=== PATIENT | male | born 1960 | race Caucasian/White ===

== ENCOUNTER 2016-11-21 16:38 | Inpatient (IN) | payer OTHER ==
[~2016-11-21] VITALS: Ht 162.6 cm; Wt 71.7 kg
--- NOTE | 2016-11-21 16:38 | NUR ---
CHEST PAIN PRESSURE LIKE PAIN STARTED AROUND 1330 TODAY. NAD NOTED. PT AAO X4, AMB WITH STEADY GAIT. RR EVEN AND UNLABORED. VSS. PLACED IN GOWN AND MONITOR. CONTINUE TO MONITOR.
--- NOTE | 2016-11-21 16:45 | NUR ---
EKG AT BEDSIDE
[2016-11-21] MEDS ORDERED: NITROGLYCERIN 0.4 MG/TAB BOTTLE SL ONE (17:30)
[2016-11-21 17:32] LABS: BASOPHILS % (AUTO) 0.3 % (0.0-2.0); EOSINOPHILS # (AUTO) 0.1 /CMM (0.0-0.7); EOSINOPHILS % (AUTO) 1.4 % (0.0-6.0); HEMATOCRIT 39 % (39-51); HEMOGLOBIN 12.8 g/dL (13.5-17.5); LYMPHOCYTES # (AUTO) 1.6 /CMM (0.8-4.8); LYMPHOCYTES % (AUTO) 27.3 % (20.0-44.0); MEAN CORPUSCULAR HEMOGLOBIN 26 PG (26.0-33.0); MEAN CORPUSCULAR HGB CONC 33 g/dl (31.0-36.0); MEAN CORPUSCULAR VOLUME 78 fL (80-96); MONOCYTES # (AUTO) 0.5 /CMM (0.1-1.30); NEUTROPHILS # (AUTO) 3.8 /CMM (1.8-8.9); PLATELET COUNT (AUTO) 190 /CMM (150-450); RDW COEFFICIENT OF VARIATION 14.1 (11.5-15.0)
[2016-11-21 17:37] LABS: CALCIUM, SERUM 9.3 mg/dL (8.5-10.1); CARBON DIOXIDE 28 mmol/L (21-32); CHLORIDE 103 mmol/L (98-107); CREATININE 0.9 mg/dL (0.6-1.3); GLUCOSE 101 mg/dL (74-106); POTASSIUM 3.6 mmol/L (3.5-5.1); SODIUM SERUM 134 mmol/L (136-145); UREA NITROGEN, BLOOD 17 mg/dL (7-18)
[2016-11-21 17:38] LABS: PROTHROMBIN TIME 10.4 SECS (9.5-12.7)
[2016-11-21 17:41] LABS: TROPONIN I < 0.017 ng/mL (0.00-0.056)
[2016-11-21] MEDS ORDERED: IV NS 0.9% 250 ML IV ONE (17:46)
[2016-11-21] MEDS ORDERED: IOHEXOL-300 100 ML VIAL IV ONE (17:46)
[2016-11-21] MEDS ORDERED: NITROGLYCERIN 0.4 MG/TAB BOTTLE ONE (17:47)
[2016-11-21 17:48] LABS: B-TYPE NATRIURETIC PEPTIDE 48 PG/ML (0-125)
--- NOTE | 2016-11-21 18:34 | NUR ---
PAGED DIRECTOR EHS FOR DR LIVINGSTON
[2016-11-21] MEDS ORDERED: ASPIRIN 325 MG TABLET PO ONE (19:30)
[2016-11-21] MEDS ORDERED: ASPIRIN 325 MG TABLET ONE (19:59)
[2016-11-21 20:00] VITALS: BP 125/79
--- NOTE | 2016-11-21 20:04 | NUR ---
CALLING REPORT TO TELE NURSE.
--- NOTE | 2016-11-21 20:10 | NUR ---
REPORT GIVEN TO KUN JOHNSTON LAURA
[2016-11-21 21:00] VITALS: BP 125/79
--- NOTE | 2016-11-21 21:00 | NUR ---
RN NOTES RECEIVED PT. FROM ER WITH DX. OF CHEST PAIN, A/OX4, SR WITH BBB ON TELE MONITOR HR-78, PAIN ON THE LEFT ARM , NO SOB, ADMISSION INSTRUCTION WAS GIVEN, CALL LIGHT WITHIN REACH, SIDERAILS UPX2 CONTINUE TO MONITOR
[2016-11-21] MEDS ORDERED: ONDANSETRON HCL/PF 4 MG/2 ML VIAL IV PRN (21:30)
[2016-11-21] MEDS ORDERED: MORPHINE SULFATE INJ 2 MG/ML DISP.SYRIN IV PRN (21:30)
[2016-11-21] MEDS ORDERED: ACETAMINOPHEN LIQUID 160 MG/5 ML BOTTLE PO PRN (21:30)
[2016-11-21] MEDS ORDERED: ENOXAPARIN SODIUM 40 MG/0.4 ML DISP.SYRIN SQ SCH (21:30)
[2016-11-21] MEDS ORDERED: ENOXAPARIN SODIUM 40 MG/0.4 ML DISP.SYRIN SQ ONE (21:45)
[2016-11-21] MEDS ORDERED: ACETAMINOPHEN 325 MG TABLET ONE (21:45)
[2016-11-21] MEDS ORDERED: IV NS 0.9% 1,000 ML ONE (21:50)
[2016-11-21] MEDS ORDERED: IV SET PRIMARY PUMP SET 1 EA INFUS.SET MC ONE (21:50)
[2016-11-21] MEDS ORDERED: IV NS 0.9% 1,000 ML BAG IV SCH (22:00)
[2016-11-21] MEDS: ACETAMINOPHEN 325 MG TABLET PO PRN (22:01)
[2016-11-21] MEDS ORDERED: BUSP10TA3 PO (22:25)
[2016-11-21] MEDS ORDERED: TRAZ-147 PO (22:25)
--- NOTE | 2016-11-21 22:50 | NUR ---
RN NOTES SPOKE TO DR. LIVINGSTON AND GOT AN ORDER OF BUSPAR 10MG PO AND TRAZODONE 100MG PO , ORDER NOTED AND CARRIED OUT
--- NOTE | 2016-11-21 23:00 | NUR ---
RN NOTES' COMPLAINED OF HEADACHE-TYLENOL 650MG PO GIVEN ORDERED
[2016-11-21] MEDS ORDERED: TRAZODONE 50 MG TABLET ONE (23:07)
[2016-11-21] MEDS ORDERED: busPIRone 5 MG TABLET ONE (23:07)
[2016-11-21] MEDS: TRAZODONE 50 MG TABLET PO SCH (23:12)
[2016-11-21] MEDS: busPIRone 5 MG TABLET PO SCH (23:12)
[2016-11-21] MEDS ORDERED: NITROGLYCERIN PACKET 1 GM PACKET ONE (23:14)
[2016-11-21] MEDS: NITROGLYCERIN 30 GM TUBE TP SCH (23:23)
[2016-11-22] VITALS: BP 117/74
[2016-11-22 04:00] VITALS: BP 94/55
[2016-11-22] MEDS: NITROGLYCERIN 30 GM TUBE TP SCH (06:00)
--- NOTE | 2016-11-22 06:23 | NUR ---
RN NOTES AWAKE, DENIES PAIN, NO SOB, MORNING CARE RENDERED, PT. NEEDS ATTENDED. ENDORSED TO DAYSHIFT NURSE FOR CONTINUITY OF CARE
[2016-11-22 06:45] LABS: BASOPHILS % (AUTO) 0.5 % (0.0-2.0); EOSINOPHILS # (AUTO) 0.1 /CMM (0.0-0.7); EOSINOPHILS % (AUTO) 2.2 % (0.0-6.0); HEMATOCRIT 35 % (39-51); LYMPHOCYTES # (AUTO) 1.3 /CMM (0.8-4.8); MEAN CORPUSCULAR HEMOGLOBIN 27 PG (26.0-33.0); MEAN CORPUSCULAR HGB CONC 34 g/dl (31.0-36.0); MEAN CORPUSCULAR VOLUME 80 fL (80-96); MONOCYTES # (AUTO) 0.5 /CMM (0.1-1.30); MONOCYTES % (AUTO) 10.5 % (2.0-12.0); NEUTROPHILS # (AUTO) 2.4 /CMM (1.8-8.9); NEUTROPHILS % (AUTO) 55.8 % (43.0-81.0); PLATELET COUNT (AUTO) 174 /CMM (150-450); RDW COEFFICIENT OF VARIATION 15.1 (11.5-15.0); RED BLOOD CELL COUNT(AUTO) 4.42 MIL/uL (4.5-6.0); WHITE BLOOD COUNT (AUTO) 4.3 K/uL (4.3-11.0)
[2016-11-22 06:54] LABS: TROPONIN I < 0.017 ng/mL (0.00-0.056)
[2016-11-22 06:55] LABS: CALCIUM, SERUM 8.7 mg/dL (8.5-10.1); CARBON DIOXIDE 28 mmol/L (21-32); CHLORIDE 108 mmol/L (98-107); CREATININE 0.9 mg/dL (0.6-1.3); GLUCOSE 93 mg/dL (74-106); POTASSIUM 4.3 mmol/L (3.5-5.1); SODIUM SERUM 142 mmol/L (136-145); UREA NITROGEN, BLOOD 14 mg/dL (7-18)
[2016-11-22 07:04] VITALS: BP 98/56
[2016-11-22] MEDS ORDERED: ENOXAPARIN SODIUM 40 MG/0.4 ML DISP.SYRIN SQ SCH (07:05)
[2016-11-22 07:27] LABS: CHOLESTEROL 122 mg/dL (<200); HDL CHOLESTEROL 33 mg/dL (40-60); LDL 81 mg/dL (0-99); TRIGLYCERIDES 58 mg/dL (30-150)
[2016-11-22] MEDS ORDERED: LAMO200T39 PO (07:54)
[2016-11-22] MEDS ORDERED: FLUT16SP16 NS (07:54)
[2016-11-22] MEDS ORDERED: CETI-102 PO (07:54)
[2016-11-22] MEDS: ASPIRIN EC 325 MG TABLET.DR PO SCH (08:06)
[2016-11-22] MEDS: PANTOPRAZOLE 40 MG TABLET.DR PO SCH (08:06)
[2016-11-22] MEDS: busPIRone 5 MG TABLET PO SCH ×2 (08:07→16:05)
[2016-11-22] MEDS: CARVEDILOL 6.25 MG TABLET PO SCH ×2 (08:07→21:55)
[2016-11-22] MEDS: ATORVASTATIN 10 MG TABLET PO SCH (08:07)
[2016-11-22 08:29] LABS: MAGNESIUM 1.9 mg/dL (1.8-2.4); PHOSPHORUS 4.4 mg/dL (2.5-4.9)
[2016-11-22 08:34] LABS: THYROID STIMULATING HORMONE 4.736 uIU/mL (0.358-3.74)
--- NOTE | 2016-11-22 09:35 | NUR ---
CALL PERSON NOTES CALLED DR LIVINGSTON'S OFFICE TO SEE IF HE COULD CONTINUE THE PATIENT'S MEDS. WAITING FOR A RETURN CALL.
--- NOTE | 2016-11-22 09:41 | NUR ---
CAD DETAILER NOTE RECEIVED CALL FROM DR LIVINGSTON WHO STATES TO CONTINUE ALL HOME MEDS. FAXED A MED RECON PAGE TO PHARMACY WITH ORDERS.
[2016-11-22] MEDS: IV NS 0.9% 1,000 ML IV PRN (10:35)
[2016-11-22] MEDS ORDERED: busPIRone 5 MG TABLET PO SCH (11:00)
[2016-11-22] MEDS: FLUTICASONE PROPIONATE 16 GM BOTTLE NS SCH (11:00)
[2016-11-22] MEDS: cetrizine 10 MG TABLET PO SCH (11:03)
[2016-11-22] MEDS: LamoTRIgine 100 MG TABLET PO SCH (11:03)
[2016-11-22] MEDS ORDERED: IV NS 0.9% 250 ML IV ONE (14:43)
[2016-11-22] MEDS ORDERED: IOHEXOL-300 100 ML VIAL IV ONE (14:43)
[2016-11-22] MEDS ORDERED: CT SWABBABLE VALVE TRANS SET 1 EA INFUS.SET MC ONE (14:43)
[2016-11-22 18:49] VITALS: BP 126/78
--- NOTE | 2016-11-22 19:24 | NUR ---
NECKTIE OPERATOR POCKETS AND PIECES CLOSING NOTES NO SIGNIFICANT CHANGES IN PATIENT CONDITION THROUGHOUT THE SHIFT. NO SOB OR DISTRESS NOTED. PATIENT DENIES PAIN. HEART RATE SR IN THE 80S. WILL ENDORSE FOR LAURA.
[2016-11-22 20:00] VITALS: BP 118/75
--- NOTE | 2016-11-22 20:00 | NUR ---
TELE/RN RECEIVE PATIENT AWAKE, ALERT, ORIENTED, COMFORTABLE, NO C/O PAIN, NO DISTRESS NOTED. EDUCATED ABOUT STRESS TEST PROCEDURE IN A.M., VERBALIZED UNDERSTANDING. WILL MONITOR.
[2016-11-22] MEDS: TRAZODONE 50 MG TABLET PO SCH (21:55)
[2016-11-22] MEDS: ACETAMINOPHEN 325 MG TABLET PO PRN (21:57)
[2016-11-22] MEDS ORDERED: TRAZODONE 50 MG TABLET PO SCH (22:00)
[2016-11-23] VITALS: BP 108/70
[2016-11-23] MEDS: IV NS 0.9% 1,000 ML IV PRN (00:38)
--- NOTE | 2016-11-23 01:03 | NUR ---
TELE/RN PATIENT IS SLEEPING AT THIS TIME, EASILY AROUSABLE,APPEAR COMFORTABLE, NO SIGNS OF DISTRESS NOTED, CALL LIGHT IN REACH. WILL CONTINUE TO MONITOR.
[2016-11-23 04:00] VITALS: BP 110/70
--- NOTE | 2016-11-23 06:46 | NUR ---
TELE/RN PATIENT STILL SLEEPING AT THIS TIME, AROUSABLE, APPEAR COMFORTABLE, ALL NEEDS ATTENDED AT THIS TIME. WILL CONTINUE TO MONITOR.
[2016-11-23 06:59] VITALS: BP 118/70
[2016-11-23 08:00] VITALS: BP 118/70
[2016-11-23] MEDS ORDERED: REGADENOSON 0.4 MG/5 ML DISP.SYRIN IVP ONE (08:00)
--- NOTE | 2016-11-23 08:00 | NUR ---
MS/FASHION CONSULTANT/LEXISCAN PT. IS WEARING AN EXTERNAL ELEVATOR TENDER WITH LEADS. BEFORE PT. LEFT ROOM FOR LEXISCAN STRESS TEST, LEADS WERE REMOVED, AND IV WAS DISCONNECTED. PT. WAS TAKEN TO STRESS TEST BY WHEELCHAIR. CONSENT FORMS SIGNED.
--- NOTE | 2016-11-23 08:20 | NUR ---
MS/RN OPENING NOTE PT. IS NPO FOR YAMILKA, STRESS TEST FOR THIS MORNING, CONSENT FORMS SIGNED. PT. IS WEARING AN EXTERNAL HVAC LEAD. PT. IS IN BED A&OX4. NO S/S OF SOB, PT. IS ON OXYGEN 2 L/MIN OF OXYGEN. NO S/S OF DISTRESS, AND DENIES PAIN. PT. HAD 600 ML OF URINE OUTPUT IN URINAL THAT WAS CLEAR AND YELLOW. IV FLUIDS RUNNING AT 75 ML/HR. BED IS IN LOW POSITION, 2 SIDE RAILS UP, CALL LIGHT WITHIN REACH, AND ALL NEEDS ATTENDED TO.
[2016-11-23] MEDS: ACETAMINOPHEN 325 MG TABLET PO PRN (09:09)
[2016-11-23] MEDS: FLUTICASONE PROPIONATE 16 GM BOTTLE NS SCH (09:10)
[2016-11-23] MEDS: cetrizine 10 MG TABLET PO SCH (09:11)
[2016-11-23] MEDS: LamoTRIgine 100 MG TABLET PO SCH (09:12)
[2016-11-23] MEDS: ATORVASTATIN 10 MG TABLET PO SCH (09:12)
[2016-11-23] MEDS: CARVEDILOL 6.25 MG TABLET PO SCH (09:12)
[2016-11-23] MEDS: PANTOPRAZOLE 40 MG TABLET.DR PO SCH (09:12)
[2016-11-23] MEDS: ASPIRIN EC 325 MG TABLET.DR PO SCH (09:13)
[2016-11-23] MEDS: busPIRone 5 MG TABLET PO SCH ×2 (09:13→17:03)
[2016-11-23 12:00] VITALS: BP 114/76
--- NOTE | 2016-11-23 13:10 | NUR ---
NM: MYOCARDIAL STRESS TEST WAS COMPLETED. TECH:RB.
[2016-11-23 16:00] VITALS: BP 117/73
--- NOTE | 2016-11-23 18:29 | NUR ---
MS/HEAD WAITER/WAITRESS PT. WAS DISCHARGED HOME IN MEDICALLY STABLE CONDITION. PT. SIGNED DISCHARGE PAPER, BELONGINGS LIST AND PT. VERBALIZED DISCHARGE TEACHING UNDERSTANDING. IV AND ID BAND WAS REMOVED. PT. WALKED TO HOSPITAL'S MAIN ENTRANCE WITH
== END 2016-11-23 18:25 | disposition home or self-care (01) | DRG 206 ==
LOC: ER 16:42 → TELE 20:39
PROVIDERS: ADMIT Legal Medicine; ATTEND Legal Medicine
DX: M94.0 Chondrocostal junction syndrome [Tietze] (principal); I10 Essential (primary) hypertension; D64.9 Anemia, unspecified; F32.9 Major depressive disorder, single episode, unspecified; F41.9 Anxiety disorder, unspecified; R47.1 Dysarthria and anarthria; Z87.891 Personal history of nicotine dependence; R20.9 Unspecified disturbances of skin sensation
CPT/HCPCS: 36415; 70470-TC; 71010-TC; 71260-TC; 80048-TC; 80061-TC; 82306; 82728-TC; 83540-TC; 83735-TC; 83880; 84100-TC; 84439-TC; 84443-TC; 84484-TC; 85025-TC; 85652-TC; 85730-TC; 93307-TC; 93880-TC; A4606; A9502; J1650; J2785; J7030; J7050; Q9967; Z7610

== ENCOUNTER 2017-12-11 17:33 | Inpatient (IN) | payer OTHER ==
[~2017-12-11] VITALS: Ht 162.6 cm; Wt 68.0 kg
[~2017-12-11 17:33] MED LIST: BUSP10TA3 PO; CETI-102 PO; FLUT16SP16 NS; LAMO200T PO; TRAZ-214 PO
--- NOTE | 2017-12-11 19:21 | NUR ---
DR. ORELLANA AT BEDSIDE FOR EVAL.
--- NOTE | 2017-12-11 19:28 | NUR ---
PT BB SELF FROM HOME C/C OF BILATERAL FLANK PAIN 03/10 NON RADIATING. +N/V/D SINCE SATURDAY. PT STATES HE MAY HAVE ATE SOMETHING BAD. PT IS AAOX4. SKIN WNL. RESP EVEN AND UNLABORED. NO S/S OF ACUTE DISTRESS NOTED. VSS. PT AMBULATED WITH STEADY GAIT NOTED TO ER BED 18. PT SAFETY AND COMFORT MEASURES IN PLACE. PT PLACED ON CLINICAL TRIAL ASSOCIATE AND POX. BEDSIDE FOR EVAL.
[2017-12-11 19:38] LABS: BASOPHILS % (AUTO) 0.2 % (0.0-2.0); EOSINOPHILS % (AUTO) 0.4 % (0.0-6.0); HEMATOCRIT 41 % (39-51); HEMOGLOBIN 13.6 g/dL (13.5-17.5); LYMPHOCYTES # (AUTO) 1.3 /CMM (0.8-4.8); LYMPHOCYTES % (AUTO) 15.5 % (20.0-44.0); MEAN CORPUSCULAR HGB CONC 34 g/dl (31.0-36.0); MEAN CORPUSCULAR VOLUME 80 fL (80-96); MONOCYTES # (AUTO) 0.7 /CMM (0.1-1.30); MONOCYTES % (AUTO) 8.2 % (2.0-12.0); NEUTROPHILS # (AUTO) 6.5 /CMM (1.8-8.9); NEUTROPHILS % (AUTO) 75.7 % (43.0-81.0); PLATELET COUNT (AUTO) 218 /CMM (150-450); RDW COEFFICIENT OF VARIATION 13.9 (11.5-15.0); RED BLOOD CELL COUNT(AUTO) 5.09 MIL/uL (4.5-6.0); WHITE BLOOD COUNT (AUTO) 8.5 K/uL (4.3-11.0)
[2017-12-11 19:45] LABS: CALCIUM, SERUM 9.4 mg/dL (8.5-10.1); CARBON DIOXIDE 27 mmol/L (21-32); CHLORIDE 100 mmol/L (98-107); CREATININE 1.1 mg/dL (0.6-1.3); GLUCOSE 99 mg/dL (74-106); POTASSIUM 3.6 mmol/L (3.5-5.1); SODIUM SERUM 136 mmol/L (136-145); UREA NITROGEN, BLOOD 10 mg/dL (7-18)
[2017-12-11 19:48] LABS: INR 1.02 (0.85-1.15)
[2017-12-11 19:50] LABS: ALANINE AMINOTRANSFERASE 26 U/L (12-78); ALBUMIN 3.6 g/dL (3.4-5.0); ALKALINE PHOSPHATASE 112 U/L (46-116); ASPARTATE AMINOTRANSFERASE 26 U/L (15-37); BILIRUBIN,DIRECT 0.2 mg/dL (0.0-0.2); BILIRUBIN,TOTAL 0.5 mg/dL (0.2-1.0); TOTAL PROTEIN, SERUM 7.9 g/dL (6.4-8.2)
[2017-12-11 19:52] LABS: TROPONIN I < 0.017 ng/mL (0.00-0.056)
[2017-12-11] MEDS ORDERED: ACETAMINOPHEN 325 MG TABLET PO ONE (20:00)
[2017-12-11] MEDS ORDERED: IV NS 0.9% 1,000 ML BAG IV ONE (20:00)
[2017-12-11] MEDS ORDERED: ACETAMINOPHEN 325 MG TABLET ONE (20:04)
[2017-12-11 20:06] LABS: APPEARANCE,URINE Clear (CLEAR); BILIRUBIN,URINE Negative (NEGATIVE); BLOOD, URINE Negative Ery/uL (NEGATIVE); COLOR,URINE Yellow (YELLOW); KETONES,URINE Negative (NEGATIVE); LEUKOCYTE ESTERASE ,URINE Negative (NEGATIVE); NITRITE, URINE Negative (NEGATIVE); PROTEIN,URINE Negative (NEGATIVE); UGLUCOSE Negative (NEGATIVE); UROBILINOGEN,URINE 0.2 EU/dL (0.2)
[2017-12-11] MEDS ORDERED: KETOROLAC TROMETHAMINE INJ 30 MG/ML VIAL ONE (20:42)
[2017-12-11] MEDS ORDERED: KETOROLAC TROMETHAMINE INJ 30 MG/ML VIAL IV ONE (21:00)
[2017-12-11] MEDS ORDERED: PIPERACILLIN /TAZOBACTAM 3.375 G VIAL IV ONE (21:00)
[2017-12-11] MEDS ORDERED: PIPERACILLIN /TAZOBACTAM 3.375 G in IV D5W 50 ML IV ONE (21:00)
--- NOTE | 2017-12-11 21:35 | NUR ---
PAGED DR LIVINGSTON
--- NOTE | 2017-12-11 22:00 | NUR ---
RECEIVED ADMITTING ORDERS FROM DR. LIVINGSTON
--- NOTE | 2017-12-11 22:04 | NUR ---
CALLED NURSING SUP AND REQUESTED A MED SURG BED FOR THIS PT.
--- NOTE | 2017-12-11 22:26 | NUR ---
REPORT GIVEN TO OPAL KAPOOR FOR LAURA.
--- NOTE | 2017-12-11 22:30 | NUR ---
ASSIGNED TO MED SURG RM#: [id number], DX: COLITIS, ACCEPTING MD: MIKI
--- NOTE | 2017-12-11 22:43 | NUR ---
RN ADMITTING NOTES PATIENT BROUGHT INTO THE UNIT VIA WHEELCHAIR, ALERT AND ORIENTED X 4, NOTED WITH NO SOB, BREATHING EVEN AND UNLABORED, DENIES PAIN AT THIS TIME, AFEBRILE, VS STABLE. ORIENTED PT TO UNIT, ROOM, ROOM MATE, ADMISSION PROCESS, CALL LIGHT AND USE OF CALL LIGHT. PATIENT VERBALIZED UNDERSTANDING. ALL PATIENT'S NEEDS ATTENDED TO AT THIS TIME, PT IS AWARE OF SAFETY NEEDS, PLACED BED IN LOW POSITION AND LOCKED IN PLACE. CALL LIGHT PLACED WITHIN EASY REACH. WILL CONTINUE TO MONITOR PT.
[2017-12-11 22:45] VITALS: BP 133/74
[2017-12-11] MEDS ORDERED: CARV6.252 PO (23:25)
[2017-12-11] MEDS ORDERED: ATOR10TA PO (23:25)
[2017-12-11] MEDS ORDERED: LORA10TA68 PO (23:25)
[2017-12-11] MEDS ORDERED: L. A1CAP12 PO (23:25)
[2017-12-11] MEDS ORDERED: MULT-1185 PO (23:25)
--- NOTE | 2017-12-11 23:35 | NUR ---
RN NOTES PATIENT WITH MEDICATION FROM HOME, PAGED MD TO RECONCILE MEDICATION. WAITING FOR CALL BACK.
--- NOTE | 2017-12-11 23:45 | NUR ---
RN NOTES RECEIVED CALL BACK FROM DR. LIVINGSTON WITH NEW ORDERS TO GIVE TRAZODONE AND ATORVASTATIN DUE TONIGHT AND TO RECONCILE OTHER MEDICATIONS IN THE MORNING. CLARIFIED MORHINE 2-4 MG ORDER. MD WITH NEW ORDER TO ADMINISTER MORPHINE 2MG IV Q3H PRN FOR MOD PAIN AND MORPHINE 4MG IV Q3H PRN FOR SEVERE PAIN. ALL ORDERS NOTED AND CARRIED OUT. PATIENT MADE AWARE AND AGREES. WILL CONTINUE TO MONITOR PT.
[2017-12-12] MEDS ORDERED: MORPHINE SULFATE INJ 2 MG/ML DISP.SYRIN IV PRN
[2017-12-12] MEDS ORDERED: MORPHINE SULFATE INJ 4 MG/ML DISP.SYRIN IV PRN
[2017-12-12] MEDS ORDERED: TRAZODONE 50 MG TABLET PO SCH
[2017-12-12] MEDS: PANTOPRAZOLE 40 MG VIAL IV SCH ×2 (00:25→10:13)
[2017-12-12] MEDS: IV D5/ 0.9% NACL 1,000 ML IV SCH ×2 (00:26→10:26)
[2017-12-12] MEDS: ONDANSETRON HCL/PF 4 MG/2 ML VIAL IV PRN ×2 (00:54→10:14)
[2017-12-12] MEDS ORDERED: PIPERACILLIN /TAZOBACTAM 3.375 G VIAL IV ONE (04:12)
[2017-12-12] MEDS: PIPERACILLIN /TAZOBACTAM 3.375 G in IV D5W 50 ML IV SCH ×4 (04:14→23:40)
--- NOTE | 2017-12-12 06:31 | NUR ---
RN CLOSING NOTES PATIENT IN BED, ASLEEP BUT EASILY AROUSABLE. PT NEW ADMIT WITH DX OF COLITIS, NOTED WITH ONE EPISODE OF WATERY STOOL WITHIN THE SHIFT. PT IN STABLE CONDITION, AFEBRILE, NO SOB, BREATHING EVEN AND UNLABORED, DENIES PAIN AT THIS TIME. ALL PATIENT'S NEEDS ATTENDED TO THROUGHOUT THE SHIFT. PLACED CALL LIGHT WITHIN EASY REACH. BED IN LOW POSITION AND LOCKED IN PLACE. WILL ENDORSE TO AM SHIFT NURSE FOR CONTINUITY OF CARE.
[2017-12-12 06:50] LABS: BASOPHILS % (AUTO) 0.2 % (0.0-2.0); HEMATOCRIT 36 % (39-51); HEMOGLOBIN 12.1 g/dL (13.5-17.5); LYMPHOCYTES # (AUTO) 1.3 /CMM (0.8-4.8); LYMPHOCYTES % (AUTO) 23.3 % (20.0-44.0); MEAN CORPUSCULAR HGB CONC 34 g/dl (31.0-36.0); MEAN CORPUSCULAR VOLUME 83 fL (80-96); MONOCYTES # (AUTO) 0.4 /CMM (0.1-1.30); NEUTROPHILS # (AUTO) 3.7 /CMM (1.8-8.9); NEUTROPHILS % (AUTO) 68.5 % (43.0-81.0); PLATELET COUNT (AUTO) 175 /CMM (150-450); RED BLOOD CELL COUNT(AUTO) 4.34 MIL/uL (4.5-6.0); WHITE BLOOD COUNT (AUTO) 5.4 K/uL (4.3-11.0)
--- NOTE | 2017-12-12 07:00 | NUR ---
MSRN OPENING NOTES. PT RECEIVED A&0X3, RESTING IN BED. PT NPO. PT TOLERATING ROOM AIR WITHOUT RESP DISTRESS. PT REPORTING ABDOMINAL PAIN AND CRAMPING, PT STATES DIARRHEA IS LESS THAN BEFORE. PT WITH IVC AT R AC G#18 INTACT AND OPERATIONAL. PT BED IN LOWEST LOCKED POSITION WITH HANDRAILSX2 AND CALL BARNES WITHIN REACH. PT BRIEFED ON TODAY'S POC AND IS WITHOUT CONCERN OR COMPLAINT AT THIS TIME.
[2017-12-12 07:12] LABS: ALBUMIN 2.7 g/dL (3.4-5.0); BILIRUBIN,TOTAL 0.5 mg/dL (0.2-1.0); CALCIUM, SERUM 7.8 mg/dL (8.5-10.1); MAGNESIUM 1.7 mg/dL (1.8-2.4); POTASSIUM 3.9 mmol/L (3.5-5.1); TOTAL PROTEIN, SERUM 6.1 g/dL (6.4-8.2)
[2017-12-12 08:00] VITALS: BP 99/70
[2017-12-12] MEDS: FLUTICASONE PROPIONATE 16 GM BOTTLE NS SCH (09:30)
[2017-12-12] MEDS ORDERED: LOPERAMIDE HCL (2 MG CAP) 2 MG CAPSULE PO PRN (09:30)
[2017-12-12] MEDS: CARVEDILOL 6.25 MG TABLET PO SCH ×2 (09:30→17:00)
--- NOTE | 2017-12-12 09:45 | NUR ---
MS/RN Consult Dr Hardwick requesting GI consult to be called for his patient. Informed MD that per schedule, Dr Calhoun is post secondary professional this week and all new referrals should be placed with him. Per Dr Hardwick, the consult should be called to Dr Bradford as he has cardiovascular technologist with the Dr Calhoun and has never meet him.
[2017-12-12] MEDS: Magnesium 1GM/D5W 100ML PREMIX 100 ML IV SCH ×2 (10:13→11:17)
[2017-12-12] MEDS: LORATADINE 10 MG TABLET PO SCH (10:13)
[2017-12-12] MEDS: MORPHINE SULFATE INJ 4 MG/ML DISP.SYRIN IV PRN (10:16)
[2017-12-12 16:00] VITALS: BP 110/73
[2017-12-12] MEDS ORDERED: NA PHOS,M-B/NA PHOS,DI-BA 1 EA ENEMA RC PRN (17:00)
[2017-12-12] MEDS: LORAZEPAM 0.5 MG TABLET PO PRN (18:06)
--- NOTE | 2017-12-12 18:21 | NUR ---
MSRN CLOSING NOTES. PT REMAINS A&0X3, RESTING IN BED. PT TOLERATING ROOM AIR WITHOUT RESP DISTRESS AND REPORTING SOME DISCOMFORT R/T ABDOMINAL CRAMPING, PT DECLINES ANALGESIA. PT REPORTING SOME ANXIETY PRN ADMINISTERED. PT WITH IVC AT R AC G#18 INTACT AND OPERATIONAL. PT BED IN LOWEST LOCKED POSITION WITH HANDRAILSX2 AND CALL BARNES WITHIN REACH. ALL DAY NURSE DUTIES ATTENDED TO AND PT IS WITHOUT CONCERN OR COMPLAINT. WILL ENDORSE TO NIGHT NURSE AT BEDSIDE FOR LAURA.
--- NOTE | 2017-12-12 19:30 | NUR ---
MS RN NOTES RECEIVED ON BED A/O X4,BREATHING REGULAR,NOT IN ANY FORM OF DISTRESS.IVF D5NS AT 100ML/HR RATE INFUSING VIA RIGHT AC VIA IV PUMP,SITE PATENT.DENIES ABDOMINAL PAIN AT THE MOMENT.INSTRUCTED REGARDING EGD AND COLONOSCOPY,THAT HE WILL START ON GOLYTELY TONIGHT AND HE'LL BE ON CLEAR LIQUIDS.PATIENT ACKNOWLEDGE UNDERSTANDING,WILL CONTINUE TO MONITOR STATUS.CALL LIGHT IN REACH,NEEDS ANTICIPATED.
[2017-12-12 20:00] VITALS: BP 132/96
[2017-12-12] MEDS ORDERED: MAGNESIUM CITRATE 296 ML BOTTLE PO ONE (20:00)
[2017-12-12] MEDS ORDERED: PEG 3350/NA SULF,BICARB,CL/KCL 4,000 ML BOTTLE PO ONE (20:00)
--- NOTE | 2017-12-12 20:00 | NUR ---
MS RN NOTES DUE FLAGYL 500 MG IVPB HUNG
--- NOTE | 2017-12-12 20:00 | NUR ---
MS RN NOTES MG CITRATE 1 BOTTLE GIVEN FOR PREP AND GOLYTELY AT BEDSIDE.
[2017-12-12] MEDS: METRONIDAZOLE 500MG/ NS 100ML 500 MG in PREMIX 1 EA IV SCH (20:02)
[2017-12-12 20:14] VITALS: BP 132/96
[2017-12-12] MEDS ORDERED: ATORVASTATIN 10 MG TABLET PO SCH ×2 (22:00)
[2017-12-12] MEDS: ATORVASTATIN 10 MG TABLET PO SCH ×2 (22:06)
[2017-12-12] MEDS: TRAZODONE 50 MG TABLET PO SCH ×2 (22:07)
[2017-12-13] MEDS: IV D5/ 0.9% NACL 1,000 ML IV SCH ×2 (02:50→18:23)
[2017-12-13] MEDS: METRONIDAZOLE 500MG/ NS 100ML 500 MG in PREMIX 1 EA IV SCH ×3 (04:34→19:56)
[2017-12-13] MEDS: PIPERACILLIN /TAZOBACTAM 3.375 G in IV D5W 50 ML IV SCH ×4 (05:35→23:46)
[2017-12-13 06:42] LABS: BASOPHILS % (AUTO) 0.4 % (0.0-2.0); EOSINOPHILS % (AUTO) 3.1 % (0.0-6.0); HEMATOCRIT 36 % (39-51); HEMOGLOBIN 11.8 g/dL (13.5-17.5); LYMPHOCYTES # (AUTO) 1.1 /CMM (0.8-4.8); LYMPHOCYTES % (AUTO) 23.3 % (20.0-44.0); MEAN CORPUSCULAR HGB CONC 33 g/dl (31.0-36.0); MEAN CORPUSCULAR VOLUME 83 fL (80-96); MONOCYTES # (AUTO) 0.4 /CMM (0.1-1.30); MONOCYTES % (AUTO) 8.6 % (2.0-12.0); NEUTROPHILS # (AUTO) 3.1 /CMM (1.8-8.9); NEUTROPHILS % (AUTO) 64.6 % (43.0-81.0); PLATELET COUNT (AUTO) 183 /CMM (150-450); RDW COEFFICIENT OF VARIATION 15.4 (11.5-15.0); RED BLOOD CELL COUNT(AUTO) 4.27 MIL/uL (4.5-6.0); WHITE BLOOD COUNT (AUTO) 4.7 K/uL (4.3-11.0)
[2017-12-13 07:02] LABS: ALBUMIN 2.8 g/dL (3.4-5.0); BILIRUBIN,TOTAL 0.3 mg/dL (0.2-1.0); CALCIUM, SERUM 7.9 mg/dL (8.5-10.1); CREATININE 0.9 mg/dL (0.6-1.3); MAGNESIUM 1.9 mg/dL (1.8-2.4); POTASSIUM 3.8 mmol/L (3.5-5.1); TOTAL PROTEIN, SERUM 6.3 g/dL (6.4-8.2)
--- NOTE | 2017-12-13 07:41 | NUR ---
MS RN NOTES TAKING GOLYTELY GRADUALY,MG CITRATE STILL AT BEDSIDE.TO SIGN CONSENT FOR EGD/COLONOSCOPY.IVF INFUSING,IV ABX TOLERATED WELL.IN NO ACUTE DISTRESS.WILL ENDORSE TO ESTEPHANIE CONTRERAS FOR LAURA.
[2017-12-13 08:00] VITALS: BP 107/71
[2017-12-13] MEDS: MORPHINE SULFATE INJ 4 MG/ML DISP.SYRIN IV PRN (09:11)
[2017-12-13] MEDS: PANTOPRAZOLE 40 MG VIAL IV SCH (09:12)
[2017-12-13] MEDS: LORATADINE 10 MG TABLET PO SCH (09:17)
[2017-12-13] MEDS: LORAZEPAM 0.5 MG TABLET PO PRN ×2 (09:17→21:46)
[2017-12-13] MEDS: CARVEDILOL 6.25 MG TABLET PO SCH ×2 (09:19→17:07)
[2017-12-13] MEDS: FLUTICASONE PROPIONATE 16 GM BOTTLE NS SCH (09:26)
[2017-12-13 14:51] LABS: OCCULT BLOOD STOOL NEGATIVE (NEGATIVE)
[2017-12-13 16:00] VITALS: BP 129/76
[2017-12-13] MEDS: LamoTRIgine 100 MG TABLET PO SCH (18:21)
--- NOTE | 2017-12-13 18:30 | NUR ---
Patient is still drinking his golitely, had about 2500 cc completed on this shift. stool still had some bowel movement at the bottom of toilet. water light green. Night nurse made aware there is 1000 cc left, in the pitcher and the bottle of golitely. MRI of back was completed. Remains on clear liquids, IV is infusing at 100 cc per hour. EGD still needs to be signed.
--- NOTE | 2017-12-13 19:35 | NUR ---
MS RN NOTE RECEIVED PATIENT FROM DAY SHIFT, PATIENT IS ALERT AND ORIENTEDX4, DENIES RESPIRATORY DISTRESS OR PAIN AT THIS TIME. PLANNED TO DO EGD AND COLONOSCOPY TOMORROW AM, CONSENTS HAVEN'T BEEN SIGNED YET, WILL GET ONE FROM HIM. IV ON RIGHT AC IS PATENT AND INTACT, FLUID IS RUNNING. SRX2, BED IN LOW POSITION, CALL LIGHT WITHIN REACH, WILL CONTINUE TO MONITOR PATIENT.
[2017-12-13 20:00] VITALS: BP 123/74
--- NOTE | 2017-12-13 20:00 | NUR ---
MS RN NOTE PATIENT SIGNED THE CONSENTS FORM. ALMOST FINISHED [employer].
[2017-12-13] MEDS: TRAZODONE 50 MG TABLET PO SCH (21:33)
[2017-12-13] MEDS: ATORVASTATIN 10 MG TABLET PO SCH (21:33)
[2017-12-14] MEDS: METRONIDAZOLE 500MG/ NS 100ML 500 MG in PREMIX 1 EA IV SCH ×3 (03:48→19:45)
[2017-12-14] MEDS: PIPERACILLIN /TAZOBACTAM 3.375 G in IV D5W 50 ML IV SCH ×3 (05:36→17:01)
[2017-12-14] MEDS: IV D5/ 0.9% NACL 1,000 ML IV PRN (05:38)
[2017-12-14 06:33] LABS: BASOPHILS % (AUTO) 0.4 % (0.0-2.0); EOSINOPHILS % (AUTO) 1.9 % (0.0-6.0); HEMATOCRIT 34 % (39-51); HEMOGLOBIN 11.3 g/dL (13.5-17.5); LYMPHOCYTES # (AUTO) 1.1 /CMM (0.8-4.8); LYMPHOCYTES % (AUTO) 25.4 % (20.0-44.0); MEAN CORPUSCULAR HGB CONC 34 g/dl (31.0-36.0); MEAN CORPUSCULAR VOLUME 83 fL (80-96); MONOCYTES # (AUTO) 0.4 /CMM (0.1-1.30); MONOCYTES % (AUTO) 9.4 % (2.0-12.0); NEUTROPHILS # (AUTO) 2.8 /CMM (1.8-8.9); NEUTROPHILS % (AUTO) 62.9 % (43.0-81.0); PLATELET COUNT (AUTO) 151 /CMM (150-450); RDW COEFFICIENT OF VARIATION 15.2 (11.5-15.0); RED BLOOD CELL COUNT(AUTO) 4.03 MIL/uL (4.5-6.0); WHITE BLOOD COUNT (AUTO) 4.4 K/uL (4.3-11.0)
[2017-12-14 06:56] LABS: ALBUMIN 2.7 g/dL (3.4-5.0); BILIRUBIN,TOTAL 0.3 mg/dL (0.2-1.0); CALCIUM, SERUM 7.9 mg/dL (8.5-10.1); MAGNESIUM 1.7 mg/dL (1.8-2.4); POTASSIUM 3.8 mmol/L (3.5-5.1)
--- NOTE | 2017-12-14 07:29 | NUR ---
MS RN NOTE PATIENT IS RESTING IN BED COMFORTABLY, NO ACUTE EVENT NOTED THROUGHOUT THE SHIFT. PATIENT COMPLETED GOLYTELY LAST NIGHT, MADE MULTIPLE BM, YELLOW WATER WITH LIGHT SEDIMENT ON THE BOTTOM OF TOILET INSPECTED. IV ON RIGHT AC IS PATENT AND INTACT, FLUID IS RUNNING. ENDORSED TO DAY SHIFT NURSE FOR LAURA.
--- NOTE | 2017-12-14 07:40 | NUR ---
RN OPENING NOTES RECEIVED PT. PT IS STABLE AND RESTING IN BED. A/OX4. NO S/S OF RESP DISTRESS OR SOB. NO C/O PAIN AT THIS TIME. PT REPORTS THAT BOWEL PREP FOR MORNING EGD/COLONOSCOPY COMPLETED, LAST BM AT 0615. PER PASTE UP WORKER REPORT, PT'S LAST BM CONSISTED OF MINIMAL PARTICLES OTHERWISE CLEAR. CONSENT AND SX CHECKLIST COMPLETED. PT HAS BEEN NPO IN PREPARATION FOR PROCEDURE. IV ACCESS LOCATED ON RAC 18G INFUSING D5NS AT 100 ML/HR. SAFETY MEASURES IN PLACE, CALL LIGHT WITHIN REACH. WILL CONTINUE TO MONITOR.
[2017-12-14 08:00] VITALS: BP 113/74
[2017-12-14] MEDS: PANTOPRAZOLE 40 MG VIAL IV SCH (08:48)
[2017-12-14] MEDS: CARVEDILOL 6.25 MG TABLET PO SCH ×2 (09:00→16:38)
[2017-12-14] MEDS: LORATADINE 10 MG TABLET PO SCH (09:00)
[2017-12-14] MEDS: LamoTRIgine 100 MG TABLET PO SCH (09:00)
[2017-12-14] MEDS: FLUTICASONE PROPIONATE 16 GM BOTTLE NS SCH (09:02)
[2017-12-14] MEDS: Magnesium 1GM/D5W 100ML PREMIX 100 ML IV SCH ×2 (10:55→12:20)
[2017-12-14] MEDS: ONDANSETRON HCL/PF 4 MG/2 ML VIAL IV PRN ×2 (11:13→16:31)
[2017-12-14] MEDS: MORPHINE SULFATE INJ 4 MG/ML DISP.SYRIN IV PRN (11:13)
[2017-12-14 16:00] VITALS: BP 116/78
--- NOTE | 2017-12-14 19:15 | NUR ---
MS RN OPENING NOTES RECEIVED PT IN BED A/O X4, BREATHING REGULAR, NOT IN ANY FORM OF DISTRESS.I VF D5NS AT 100ML/HR RATE INFUSING VIA RIGHT AC VIA IV PUMP, SITE PATENT. BRP, AMBULATORY TOLERATED. DENIES ABDOMINAL PAIN AT THIS MOMENT. BED IN LOW LOCKED POSITION. SAFETY MEASURES IN PLACE. CALL LIGHT IN REACH. WILL CONTINUE TO MONITOR.
--- NOTE | 2017-12-14 19:35 | NUR ---
RN CLOSING NOTES PT IN BED RESTING. NO S/S OF SOB OR RESP DISTRESS. NO C/O PAIN AT THIS TIME. ALL PT NEEDS ANTICIPATED AND MET. SAFETY MEASURES IN PLACE, CALL LIGHT IN REACH. WILL ENDORSE TO HAIR OR BEAUTY SALON MANAGER FOR LAURA.
[2017-12-14] MEDS: LORAZEPAM 0.5 MG TABLET PO PRN (19:44)
--- NOTE | 2017-12-14 19:44 | NUR ---
PRN ATIVAN GIVEN PT REMAINED IN BED BUT VERBALIZED BEING ANXIOUS & ASKED TO GET ATIVAN @ THIS TIME. VSS, PRN ATIVAN GIVEN. WILL REASSESS FOR EFFECTIVENESS.
[2017-12-14 20:00] VITALS: BP 113/70
--- NOTE | 2017-12-14 21:10 | NUR ---
NEW IV SITE RAC IV SITE NOTED TO BE IRRITATING TO THE PT & LEAKING, REMOVED THE IV CATH, NO BLEEDING NOTED, PRESSURE DRESSING APPLIED. NEW IV CATH INSERTED TO LFA # 22, WITH GOOD BLOOD FLOW RETURN. PROCEDURE TOLERATED WELL. ANIA CONTINUE TO MONITOR.
[2017-12-14] MEDS: ATORVASTATIN 10 MG TABLET PO SCH (21:37)
[2017-12-14] MEDS: TRAZODONE 50 MG TABLET PO SCH (21:38)
[2017-12-15] MEDS: PIPERACILLIN /TAZOBACTAM 3.375 G in IV D5W 50 ML IV SCH ×3 (00:04→11:22)
[2017-12-15] MEDS: METRONIDAZOLE 500MG/ NS 100ML 500 MG in PREMIX 1 EA IV SCH (04:08)
[2017-12-15] MEDS: IV D5/ 0.9% NACL 1,000 ML IV PRN (05:48)
--- NOTE | 2017-12-15 06:22 | NUR ---
MS RN CLOSING NOTES PT SLEPT WELL @ NIGHT, A/O X4, BREATHING REGULAR, NOT IN ANY FORM OF DISTRESS. IVF D5NS AT 100ML/HR RATE INFUSING VIA LFA VIA IV PUMP, SITE INTACT PATENT. BRP, HAD BM X 1, LOOSE, PER PT. AMBULATORY TOLERATED. DENIES ABDOMINAL PAIN AT THIS MOMENT. BED IN LOW LOCKED POSITION. SAFETY MEASURES IN PLACE. CALL LIGHT IN REACH. WILL ENDORSE TO AM RN FOR CONTINUITY OF CARE.
--- NOTE | 2017-12-15 07:32 | NUR ---
RN OPENING NOTES RECEIVED PT. PT IS STABLE AND RESTING IN BED. A/OX4. NO S/S OF RESP DISTRESS OR SOB. NO C/O PAIN AT THIS TIME. PT IS S/P EGD/COLONOSCOPY ON 12/14/17. PT ON LOW FIBER DIET, TOLERATING WELL. PT IS ASKING HAS HX OF HEMORRHOIDS AND IS CURRENTLY ASKING FOR HEMORRHOIDAL CREAM/OINTMENT, WILL F/U WITH MD. IV ACCESS LOCATED ON LFA 22G INFUSING D5NS AT 100 ML/HR. SAFETY MEASURES IN PLACE, CALL LIGHT WITHIN REACH. WILL CONTINUE TO MONITOR.
[2017-12-15 07:48] LABS: BASOPHILS % (AUTO) 0.3 % (0.0-2.0); EOSINOPHILS % (AUTO) 1.2 % (0.0-6.0); HEMATOCRIT 35 % (39-51); HEMOGLOBIN 11.5 g/dL (13.5-17.5); LYMPHOCYTES # (AUTO) 1.2 /CMM (0.8-4.8); LYMPHOCYTES % (AUTO) 21.7 % (20.0-44.0); MEAN CORPUSCULAR HGB CONC 33 g/dl (31.0-36.0); MEAN CORPUSCULAR VOLUME 83 fL (80-96); MONOCYTES # (AUTO) 0.4 /CMM (0.1-1.30); NEUTROPHILS # (AUTO) 3.8 /CMM (1.8-8.9); NEUTROPHILS % (AUTO) 68.8 % (43.0-81.0); PLATELET COUNT (AUTO) 172 /CMM (150-450); RDW COEFFICIENT OF VARIATION 14.7 (11.5-15.0); RED BLOOD CELL COUNT(AUTO) 4.15 MIL/uL (4.5-6.0); WHITE BLOOD COUNT (AUTO) 5.5 K/uL (4.3-11.0)
[2017-12-15 08:00] VITALS: BP 128/86
[2017-12-15] MEDS: LORATADINE 10 MG TABLET PO SCH (08:14)
[2017-12-15] MEDS: LORAZEPAM 0.5 MG TABLET PO PRN (08:14)
[2017-12-15] MEDS: LamoTRIgine 100 MG TABLET PO SCH (08:14)
[2017-12-15] MEDS: PANTOPRAZOLE 40 MG VIAL IV SCH (08:14)
[2017-12-15] MEDS: CARVEDILOL 6.25 MG TABLET PO SCH (08:16)
[2017-12-15 08:27] LABS: CALCIUM, SERUM 7.9 mg/dL (8.5-10.1); MAGNESIUM 1.9 mg/dL (1.8-2.4); POTASSIUM 3.8 mmol/L (3.5-5.1)
[2017-12-15] MEDS: FLUTICASONE PROPIONATE 16 GM BOTTLE NS SCH (09:24)
[2017-12-15] MEDS ORDERED: PHENYLEPHRINE/SHK LV/MO/PET,WH 30 GM TUBE RC PRN (11:00)
[2017-12-15] MEDS ORDERED: METRONIDAZOLE 500 MG TABLET PO SCH (13:00)
[2017-12-15] MEDS ORDERED: LAMO100T2 PO (13:04)
[2017-12-15] MEDS ORDERED: ATOR10TA PO (13:04)
[2017-12-15] MEDS ORDERED: TRAZ-213 PO (13:04)
[2017-12-15] MEDS ORDERED: HYDR25SU7 RC (13:04)
[2017-12-15] MEDS ORDERED: CLOT15CR5 TP (13:04)
[2017-12-15] MEDS ORDERED: METR500T PO (13:04)
[2017-12-15] MEDS ORDERED: LOPE2CAP40 PO (13:04)
[2017-12-15] MEDS ORDERED: [UNRECOGNIZED DRUG - OTHER] RC (13:04)
[2017-12-15 16:00] VITALS: BP 125/85
--- NOTE | 2017-12-15 16:52 | NUR ---
DISCHARGE NOTE PT DISCHARGED HOME. NO S/S OF RESP DISTRESS OR SOB. NO C/O PAIN AT THIS TIME. VSS. PT EDUCATION PERFORMED REGARDING DC INSTRUCTIONS AND PRESCRIPTIONS. PT VERBALIZED UNDERSTANDING OF ALL TEACHING. PT INFORMED OF NEED FOR F/U COLONOSCOPY AFTER 6-8 WEEKS POST-D/C. IV ACCESS AND ID BAND REMOVED. D/C INSTRUCTIONS/BELONGINGS SHEET/PRESCRIPTION SIGNED COPIED AND PLACED IN PT CHART. PT REFUSED PICTURES OF WOUND/DISCOLORATION. PT LEFT HOSPITAL IN PRIVATE VEHICLE.
[2017-12-16 13:10] LABS: *ANCANTIMYELOPEROXIDASE (MPO) <9.0 U/mL (0.0-9.0); *ANCANTIPROTEINASE 3 (PR-3) AB <3.5 U/mL (0.0-3.5)
[2017-12-16 13:10] LABS: HIV-2 AB EIA Negative (Neg:<1.00)
[2017-12-17 08:13] LABS: *HIV-1 RNA BY PCR <20 copies/mL (.)
[2017-12-18 17:09] LABS: *ANCA ATYPICAL p-ANCA 1:20 titer (Neg:<1:20); *ANCA CYTOPLASMIC (C-ANCA) <1:20 titer (Neg:<1:20); *ANCA PERINUCLEAR (P-ANCA) <1:20 titer (Neg:<1:20)
== END 2017-12-15 17:00 | disposition home or self-care (01) | DRG 394 ==
LOC: ER 17:41 → MED 22:34
PROVIDERS: ADMIT Legal Medicine; ATTEND Legal Medicine
DX: K55.1 Chronic vascular disorders of intestine (principal); A09 Infectious gastroenteritis and colitis, unspecified; K57.30 Diverticulosis of large intestine without perforation or abscess without bleeding; K80.20 Calculus of gallbladder without cholecystitis without obstruction; N20.0 Calculus of kidney; I10 Essential (primary) hypertension; E86.0 Dehydration; Z98.890 Other specified postprocedural states; Z79.899 Other long term (current) drug therapy; F41.9 Anxiety disorder, unspecified; K21.9 Gastro-esophageal reflux disease without esophagitis; M19.90 Unspecified osteoarthritis, unspecified site; F32.9 Major depressive disorder, single episode, unspecified; M54.40 Lumbago with sciatica, unspecified side; D64.9 Anemia, unspecified; K29.80 Duodenitis without bleeding; K29.70 Gastritis, unspecified, without bleeding; D12.2 Benign neoplasm of ascending colon; B19.20 Unspecified viral hepatitis C without hepatic coma; K64.8 Other hemorrhoids
CPT/HCPCS: 36415; 71045-TC; 72148-TC; 80048-TC; 80053-TC; 80074; 80076-TC; 81000-TC; 82272-TC; 83520; 83605-TC; 83735-TC; 84484-TC; 85025-TC; 85730-TC; 86256; 86701; 86702; 87040-TC; 87045-TC; 87081-TC; 87086-TC; 87177; 87209; 87536; 88305-TC; 88313-TC; 88342; A4216; A4606; C9113; J1885; J2270; J2405; J2543; J2704; J3475; J3490; J7030; J7042; J7060; Z7610